=== PATIENT | female | born 1990 | race Hispanic/Latino ===

== ENCOUNTER 2017-05-29 17:43 | Emergency (ER) | payer OTHER ==
[2017-05-29] MEDS ORDERED: LACTATED RINGERS 1,000 ML IVS ONE (18:24)
--- NOTE | 2017-05-29 18:25 | ED.PDOC ---
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 Timing/Duration: intermittent Severity: moderate Improving Factors: nothing Worsening Factors: nothing Associated Symptoms: denies symptoms Allergies/Adverse Reactions: Allergies NO KNOWN ALLERGY Allergy (Verified 02/13/15 21:43) Home Medications: Ambulatory Orders Nitrofurantoin Macrocrystal [Macrodantin] 100 mg PO BID #20 cap 01/05/15 Ondansetron [Zofran Odt] 4 mg PO Q8HR PRN #15 tab 01/05/15 Review of Systems - Review of Systems Constitutional: States: no symptoms reported EENTM: States: no symptoms reported, see HPI, other - twitching eyelids Respiratory: States: no symptoms reported Cardiology: States: no symptoms reported Gastrointestinal/Abdominal: States: no symptoms reported Genitourinary: States: no symptoms reported Musculoskeletal: States: no symptoms reported Skin: States: no symptoms reported Neurological: States: no symptoms reported Endocrine: States: no symptoms reported Hematologic/Lymphatic: States: no symptoms reported Past Medical History (General) - Patient Medical History Hx Other PMH: Yes - anxity /depression Surgical History: other - hernia repair - Vaccination History Hx Tetanus, Diphtheria Vaccination: Yes Hx Influenza Vaccination: Yes Hx Pneumococcal Vaccination: No - Social History Hx Tobacco Use: No Hx Alcohol Use: No Hx Substance Use: No Hx Substance Use Treatment: No Hx Depression: No Hx Physical Abuse: No Hx Emotional Abuse: No Hx Suspected Abuse: No - Female History Hx Last Menstrual Period: 05/17/15 - contraceptive implant Patient : No Family Medical History - Family History Mother Family History: Unknown Hx Family Hypertension: Yes - mom Hx Family;Other: anxiety/depression Physical Exam - Physical Exam General Appearance: Alert, Comfortable, No apparent distress Eye Exam: bilateral normal Ears, Nose, Throat: hearing grossly normal, normal ENT inspection, normal pharynx Neck: non-tender, full range of motion, supple Respiratory: chest non-tender, lungs clear, normal breath sounds, no respiratory distress Cardiovascular/Chest: normal peripheral pulses, regular rate, rhythm, no edema, no gallop, no JVD, no murmur Peripheral Pulses: radial,right: 2+, radial,left: 2+ Gastrointestinal/Abdominal: normal bowel sounds, non tender, soft, no organomegaly Back Exam: normal inspection, no CVA tenderness, no vertebral tenderness Extremity: normal range of motion, non-tender, no calf tenderness Neurologic: no motor/sensory deficits, alert, oriented x 3 Skin Exam: normal color, warm/dry Lymphatic: no adenopathy Progress - Progress Progress: 05/29/17 20:10 Vital Signs - 8 hr 05/29/17 05/29/17 18:10 19:00 Temperature 96.6 F L Pulse Rate [ 94 H 84 left brachial] Respiratory 20 20 Rate Blood Pressure 114/75 115/72 [left brachial] O2 Sat by Pulse 99 Oximetry - Results/Orders Results/Orders: 05/29/17 18:45 URINE CULTURE W/COLONY COUNT Stat Laboratory Results - last 24 hr 05/29/17 05/29/17 05/29/17 18:35 18:35 18:45 WBC 5.9 RBC 4.47 Hgb 13.8 Hct 40.3 MCV 90.1 MCH 30.9 MCHC 34.3 RDW 12.7 Plt Count 191 MPV 7.8 Absolute Neuts (auto) 3.30 Absolute Lymphs (auto) 2.10 Absolute Monos (auto) 0.40 Absolute Eos (auto) 0.10 Absolute Basos (auto) 0.00 Neutrophils % 55.4 Lymphocytes % 36.2 Monocytes % 6.9 Eosinophils % 1.2 Basophils % 0.3 Sodium 142 Potassium 3.6 Chloride 110 Carbon Dioxide 23 Anion Gap 12.6 BUN 13 Creatinine 0.79 BUN/Creatinine Ratio 16.5 Random Glucose 102 Serum Osmolality 283.4 Calcium 8.7 Total Bilirubin 0.5 AST 18 ALT 20 Alkaline Phosphatase 73 Creatine Kinase 123 Serum Total Protein 7.4 Albumin 4.6 Globulin 2.8 Albumin/Globulin Ratio 1.6 Urine Color Urine Appearance Urine pH Ur Specific [place] Urine Protein Urine Glucose (UA) Urine Ketones Urine Blood Urine Nitrite Urine Bilirubin Urine Urobilinogen Ur Leukocyte Esterase Urine RBC Urine WBC Ur Epithelial Cells Amorphous Sediment Urine Bacteria Urine Opiates Screen Negative Urine Barbiturates Negative Ur Phencyclidine Scrn Negative U Amphetamin/Meth Scrn Negative U Benzodiazepines Scrn Negative U Cocaine Metab Screen Negative U Cannabinoids Screen Negative 05/29/17 18:45 WBC RBC Hgb Hct MCV MCH MCHC RDW Plt Count MPV Absolute Neuts (auto) Absolute Lymphs (auto) Absolute Monos (auto) Absolute Eos (auto) Absolute Basos (auto) Neutrophils % Lymphocytes % Monocytes % Eosinophils % Basophils % Sodium Potassium Chloride Carbon Dioxide Anion Gap BUN Creatinine BUN/Creatinine Ratio Random Glucose Serum Osmolality Calcium Total Bilirubin AST ALT Alkaline Phosphatase Creatine Kinase Serum Total Protein Albumin Globulin Albumin/Globulin Ratio Urine Color Yellow Urine Appearance Cloudy Urine pH 7.0 Ur Specific [place] 1.020 Urine Protein Negative Urine Glucose (UA) Negative Urine Ketones Negative Urine Blood Negative Urine Nitrite Negative Urine Bilirubin Negative Urine Urobilinogen 1.0 Ur Leukocyte Esterase Moderate H Urine RBC 0 Urine WBC 5-10 H Ur Epithelial Cells 10-20 Amorphous Sediment 3+ Urine Bacteria 1+ Urine Opiates Screen Urine Barbiturates Ur Phencyclidine Scrn U Amphetamin/Meth Scrn U Benzodiazepines Scrn U Cocaine Metab Screen U Cannabinoids Screen Departure - Departure Clinical Impression: Blepharospasm Time of Disposition: 20:13 Disposition: Discharge to Home or Self Care Condition: Fair Referrals: Cody Richardson MD [Primary Care Provider] - 1-2 Weeks Home Medications: Ambulatory Orders Nitrofurantoin Macrocrystal [Macrodantin] 100 mg PO BID #20 cap 01/05/15 Ondansetron [Zofran Odt] 4 mg PO Q8HR PRN #15 tab 01/05/15 Additional Instructions: RETURN TO EMERGENCY ROOM NEEDED;Follow up with primary md as needed 2016 patient to call for appointment
[2017-05-29 18:38] VITALS: TEMP 96.6; O2SAT 99
[2017-05-29 19:37] VITALS: BP 115/72
== END 2017-05-29 20:39 | disposition home or self-care (01) ==
LOC: ER 17:43
DX: G24.5 Blepharospasm (principal); F41.8 Other specified anxiety disorders; Z79.899 Other long term (current) drug therapy
CPT/HCPCS: 36415; 80053; 80307; 81001; 82550; 85025; 87086; J7120